=== PATIENT | male | born 1965 | race Caucasian/White ===

== ENCOUNTER 2016-11-09 16:25 | Emergency (ER) | payer SELFPAY ==
[~2016-11-09] VITALS: Ht 177.8 cm; Wt 100.0 kg
[2016-11-09 16:55] VITALS: BP 138/70
== END 2016-11-09 16:55 | disposition home or self-care (01) | DRG 392 ==
LOC: ED 16:25
DX: R10.13 Epigastric pain (principal); K29.70 Gastritis, unspecified, without bleeding

== ENCOUNTER 2017-08-07 22:20 | Emergency (ER) | payer SELFPAY ==
[~2017-08-07] VITALS: Ht 177.8 cm; Wt 105.0 kg
[2017-08-07] MEDS ORDERED: PROTONIX40 M2 PO (22:40)
[2017-08-08 00:19] VITALS: BP 138/73
== END 2017-08-08 00:34 | DRG 159 ==
LOC: ED 22:20
PROC: 0CQ0XZZ Repair Upper Lip, External Approach (ICD-10-PCS; principal; 2017-08-07)
DX: S01.511A Laceration without foreign body of lip, initial encounter (principal); S00.83XA Contusion of other part of head, initial encounter; F17.210 Nicotine dependence, cigarettes, uncomplicated; Y04.0XXA Assault by unarmed brawl or fight, initial encounter

== ENCOUNTER 2018-03-15 11:59 | Emergency (ER) | payer OTHER ==
[~2018-03-15] VITALS: Ht 177.8 cm; Wt 98.8 kg
[~2018-03-15 11:59] MED LIST: PROTONIX40 M2 PO
[2018-03-15] MEDS ORDERED: AZITHROMYCIN500 MG PO (12:48)
[2018-03-15] MEDS ORDERED: TESSALON PERLE100 MG PO (12:51)
[2018-03-15 13:11] VITALS: BP 166/106
== END 2018-03-15 13:21 | disposition home or self-care (01) | DRG 203 ==
LOC: ED 11:59
DX: J40 Bronchitis, not specified as acute or chronic (principal); I10 Essential (primary) hypertension; F17.200 Nicotine dependence, unspecified, uncomplicated; K21.9 Gastro-esophageal reflux disease without esophagitis

== ENCOUNTER 2018-07-26 03:40 | Emergency (ER) | payer SELFPAY ==
[~2018-07-26] VITALS: Ht 177.8 cm; Wt 85.0 kg
[~2018-07-26 03:40] MED LIST changes: +AZITHROMYCIN500 MG PO; +TESSALON PERLE100 MG PO
[2018-07-26 04:21] LABS: IMMATURE GRANULOCYTES 0.3 % (0.0-5.0); MEAN CELL VOLUME 97.5 fL CALC (80.0-100.0); MEAN CORPUSCULAR HGB 34.9 pG CALC (26.0-32.0); MEAN CORPUSCULAR HGB CONC 35.8 g/L CALC (32.0-36.0); NEUT# 3.75 thou/uL (1.82-7.42); RED BLOOD COUNT 5.99 mill/uL (4.70-6.10); RED CELL DISTRI WIDTH 12.4 % (11.5-15.5)
[2018-07-26 04:23] LABS: HEMATOCRIT 58.4 % (39.0-50.0); HEMOGLOBIN 20.9 g/dl (14.0-18.0)
[2018-07-26 04:33] LABS: ALBUMIN 4.3 g/dL (3.2-5.0); ALKALINE PHOSPHATASE 112 u/l (38-126); ANION GAP 19 (6-22 (CALC)); BILIRUBIN, TOTAL 1.1 mg/dL (0.0-1.4); BUN 5 mg/dL (9-20); BUN/CREATININE RATIO 8 (12-20 (CALC)); CARBON DIOXIDE 24 mmol/l (22-30); CHLORIDE 101 mmol/l (95-108); CREATININE 0.7 mg/dL (0.7-1.3); GFR > 60 ML/MIN (>=60 (CALC)); GFR FOR AFR.AMER. > 60 ML/MIN (>=60 (CALC)); POTASSIUM 3.7 mmol/l (3.5-5.1); SODIUM 141 mmol/l (137-146); TOTAL PROTEIN 7.5 g/dL (6.3-8.2)
[2018-07-26 04:41] LABS: SGOT/AST 75 u/l (17-59)
[2018-07-26 04:45] LABS: MYOGLOBIN 33 ng/mL (0 - 121)
[2018-07-26] MEDS ORDERED: PROVENTIL HFA IN (05:57)
[2018-07-26] MEDS ORDERED: CODEINE/GUAIFEN1 SOL PO (05:57)
[2018-07-26 06:06] VITALS: BP 151/93
== END 2018-07-26 06:19 | disposition home or self-care (01) | DRG 192 ==
LOC: ED 03:40
PROVIDERS: Emergency Medicine
DX: J44.9 Chronic obstructive pulmonary disease, unspecified (principal); I10 Essential (primary) hypertension; F17.210 Nicotine dependence, cigarettes, uncomplicated

== ENCOUNTER 2018-11-04 17:43 | Emergency (ER) | payer SELFPAY ==
[~2018-11-04] VITALS: Ht 177.8 cm; Wt 90.0 kg
[~2018-11-04 17:43] MED LIST changes: +CODEINE/GUAIFEN1 SOL PO; +PROVENTIL HFA IN
[2018-11-04 18:09] LABS: HEMATOCRIT 57.9 % (39.0-50.0); HEMOGLOBIN 20.1 g/dl (14.0-18.0); IMMATURE GRANULOCYTES 0.4 % (0.0-5.0); MEAN CELL VOLUME 99.5 fL CALC (80.0-100.0); MEAN CORPUSCULAR HGB 34.5 pG CALC (26.0-32.0); MEAN CORPUSCULAR HGB CONC 34.7 g/L CALC (32.0-36.0); NEUT# 5.32 thou/uL (1.82-7.42); RED BLOOD COUNT 5.82 mill/uL (4.70-6.10); RED CELL DISTRI WIDTH 12.2 % (11.5-15.5)
[2018-11-04 18:27] LABS: ANION GAP 25 (6-22 (CALC)); BUN 8 mg/dL (9-20); BUN/CREATININE RATIO 11 (12-20 (CALC)); CARBON DIOXIDE 20 mmol/l (22-30); CHLORIDE 101 mmol/l (95-108); CREATININE 0.8 mg/dL (0.7-1.3); GFR > 60 ML/MIN (>=60 (CALC)); GFR FOR AFR.AMER. > 60 ML/MIN (>=60 (CALC)); POTASSIUM 3.3 mmol/l (3.5-5.1); SODIUM 142 mmol/l (137-146)
[2018-11-04 18:35] LABS: ETHYL ALCOHOL 366 mg/dl (0-30)
[2018-11-04 19:53] LABS: URINE BILIRUBIN - DIPSTICK NEGATIVE (NEGATIVE); URINE BLOOD DIPSTICK NEGATIVE (NEGATIVE); URINE COLOR YELLOW; URINE GLUCOSE - DIPSTICK 250 mg/dL (NEGATIVE); URINE KETONE TRACE mg/dL (NEGATIVE); URINE LEUK ESTERASE NEGATIVE (NEGATIVE); URINE NITRITE - DIPSTICK NEGATIVE (Negative); URINE PROTEIN - DIPSTICK NEGATIVE (NEG-TRACE); URINE SPECIFIC GRAVITY <=1.005; URINE UROBILINOGEN - DIPSTICK 0.2 E.U./dL (0.2)
[2018-11-04 19:55] LABS: BARBITURATES NEGATIVE (NEGATIVE); COCAINE NEGATIVE (NEGATIVE); METHADONE NEGATIVE (NEGATIVE); OXCYCODONE NEGATIVE (NEGATIVE); TETRAHYDROCANNABIONOL NEGATIVE (NEGATIVE); TRICYLIC ANTIDEPRESSANTS NEGATIVE (NEGATIVE)
[2018-11-05] MEDS ORDERED: LIBRIUM25 MG PO (07:01)
[2018-11-05 08:11] VITALS: BP 108/69
== END 2018-11-05 08:12 | disposition home or self-care (01) | DRG 897 ==
LOC: ED 17:43
PROVIDERS: Family Medicine
DX: F10.129 Alcohol abuse with intoxication, unspecified (principal); Y90.8 Blood alcohol level of 240 mg/100 ml or more; R41.82 Altered mental status, unspecified; F17.200 Nicotine dependence, unspecified, uncomplicated; Y92.009 Unspecified place in unspecified non-institutional (private) residence as the place of occurrence of the external cause
CPT/HCPCS: J2060

== ENCOUNTER 2018-12-09 04:42 | Emergency (ER) | payer SELFPAY ==
[~2018-12-09] VITALS: Ht 177.8 cm; Wt 82.0 kg
[~2018-12-09 04:42] MED LIST changes: +LIBRIUM25 MG PO
[2018-12-09 05:11] LABS: GFR > 60 ML/MIN (>=60 (CALC)); GFR FOR AFR.AMER. > 60 ML/MIN (>=60 (CALC)); IMMATURE GRANULOCYTES 0.2 % (0.0-5.0); MEAN CELL VOLUME 96.5 fL CALC (80.0-100.0); MEAN CORPUSCULAR HGB 34.3 pG CALC (26.0-32.0); MEAN CORPUSCULAR HGB CONC 35.6 g/L CALC (32.0-36.0); NEUT# 2.47 thou/uL (1.82-7.42); RED BLOOD COUNT 5.1 mill/uL (4.70-6.10); RED CELL DISTRI WIDTH 11.7 % (11.5-15.5)
[2018-12-09 05:13] LABS: HEMATOCRIT 49.2 % (39.0-50.0); HEMOGLOBIN 17.5 g/dl (14.0-18.0)
[2018-12-09 05:32] LABS: ACT PARTIAL THROMBO TIME 26.1 SECONDS (20.0-32.5); PROTHROMBIN TIME 10.6 SECONDS (9.0-12.5)
[2018-12-09 05:33] LABS: ALBUMIN 4.5 g/dL (3.2-5.0); ALKALINE PHOSPHATASE 104 u/l (38-126); BILIRUBIN, TOTAL 1.2 mg/dL (0.0-1.4); BUN 9 mg/dL (9-20); BUN/CREATININE RATIO 12 (12-20 (CALC)); CHLORIDE 102 mmol/l (95-108); CREATININE 0.7 mg/dL (0.7-1.3); ETHYL ALCOHOL 144 mg/dl (0-30); GFR > 60 ML/MIN (>=60 (CALC)); GFR FOR AFR.AMER. > 60 ML/MIN (>=60 (CALC)); LIPASE 66 u/l (23-300); MAGNESIUM 1.8 mg/dL (1.6-2.3); POTASSIUM 3.3 mmol/l (3.5-5.1); SGOT/AST 109 u/l (17-59); SODIUM 141 mmol/l (137-146); TOTAL PROTEIN 7.4 g/dL (6.3-8.2)
[2018-12-09 05:34] LABS: ANION GAP 13 (6-22 (CALC)); CARBON DIOXIDE 29 mmol/l (22-30)
[2018-12-09 06:28] VITALS: BP 134/82
[2018-12-09 06:30] LABS: URINE BILIRUBIN - DIPSTICK NEGATIVE (NEGATIVE); URINE BLOOD DIPSTICK NEGATIVE (NEGATIVE); URINE COLOR YELLOW; URINE GLUCOSE - DIPSTICK NEGATIVE (NEGATIVE); URINE KETONE NEGATIVE (NEGATIVE); URINE LEUK ESTERASE NEGATIVE (NEGATIVE); URINE NITRITE - DIPSTICK NEGATIVE (Negative); URINE PH 6.5 (4.5-8.0); URINE PROTEIN - DIPSTICK NEGATIVE (NEG-TRACE); URINE SPECIFIC GRAVITY <=1.005; URINE UROBILINOGEN - DIPSTICK 0.2 E.U./dL (0.2)
[2018-12-09 06:33] LABS: COCAINE NEGATIVE (NEGATIVE); TETRAHYDROCANNABIONOL NEGATIVE (NEGATIVE)
[2018-12-09 06:34] LABS: METHADONE NEGATIVE (NEGATIVE)
[2018-12-09 06:36] LABS: BARBITURATES NEGATIVE (NEGATIVE); OXCYCODONE NEGATIVE (NEGATIVE); TRICYLIC ANTIDEPRESSANTS NEGATIVE (NEGATIVE)
== END 2018-12-09 06:28 | disposition short-term general hospital (02) | DRG 66 ==
LOC: ED 04:42
DX: I63.9 Cerebral infarction, unspecified (principal); R20.0 Anesthesia of skin; R53.1 Weakness; R29.703 NIHSS score 3; I10 Essential (primary) hypertension; F17.200 Nicotine dependence, unspecified, uncomplicated; R07.9 Chest pain, unspecified; T46.5X6A Underdosing of other antihypertensive drugs, initial encounter; Z91.128 Patient's intentional underdosing of medication regimen for other reason; Z72.89 Other problems related to lifestyle

== ENCOUNTER 2019-02-26 07:40 | Emergency (ER) | payer BC ==
[~2019-02-26] VITALS: Ht 177.8 cm; Wt 77.0 kg
[2019-02-26] MEDS ORDERED: MEDDOSEPAK PO (08:14)
[2019-02-26] MEDS ORDERED: ZITHROMAX250 MG PO (08:14)
[2019-02-26] MEDS ORDERED: PROVENTIL108 MCG/AC IN (08:14)
[2019-02-26] MEDS ORDERED: CODEINE/GUAIFEN1 SOL PO (08:14)
[2019-02-26 08:25] VITALS: BP 140/90
== END 2019-02-26 08:31 | disposition home or self-care (01) | DRG 192 ==
LOC: ED 07:40
DX: J44.1 Chronic obstructive pulmonary disease with (acute) exacerbation (principal); F17.210 Nicotine dependence, cigarettes, uncomplicated; R05 Cough; Z91.19 Patient's noncompliance with other medical treatment and regimen

== ENCOUNTER 2019-04-25 | Emergency (ER) | payer BC ==
[~2019-04-25] MED LIST changes: +MEDDOSEPAK PO; +PROVENTIL108 MCG/AC IN; +ZITHROMAX250 MG PO
[2019-04-25 17:27] LABS: HEMATOCRIT 48.2 % (39.0-50.0); HEMOGLOBIN 16.6 g/dl (14.0-18.0); IMMATURE GRANULOCYTES 0.3 % (0.0-5.0); MEAN CELL VOLUME 100.8 fL CALC (80.0-100.0); MEAN CORPUSCULAR HGB 34.7 pG CALC (26.0-32.0); MEAN CORPUSCULAR HGB CONC 34.4 g/L CALC (32.0-36.0); NEUT# 6.12 thou/uL (1.82-7.42); RED BLOOD COUNT 4.78 mill/uL (4.70-6.10); RED CELL DISTRI WIDTH 12.3 % (11.5-15.5)
[2019-04-25 17:55] LABS: ALBUMIN 4.5 g/dL (3.2-5.0); ALKALINE PHOSPHATASE 123 u/l (38-126); BUN 12 mg/dL (9-20); CHLORIDE 103 mmol/l (95-108); LIPASE 41 u/l (23-300); SGOT/AST 185 u/l (17-59); SODIUM 141 mmol/l (137-146); TOTAL PROTEIN 8.1 g/dL (6.3-8.2)
[2019-04-25 17:56] LABS: ANION GAP 28 (6-22 (CALC)); BILIRUBIN, TOTAL 0.7 mg/dL (0.0-1.4); CARBON DIOXIDE 14 mmol/l (22-30); POTASSIUM 4.1 mmol/l (3.5-5.1)
[2019-04-25 18:34] LABS: BUN/CREATININE RATIO 20 (12-20 (CALC)); CREATININE 0.6 mg/dL (0.7-1.3); GFR > 60 ML/MIN (>=60 (CALC)); GFR FOR AFR.AMER. > 60 ML/MIN (>=60 (CALC))
[2019-04-25 19:01] LABS: URINE BILIRUBIN - DIPSTICK NEGATIVE (NEGATIVE); URINE BLOOD DIPSTICK NEGATIVE (NEGATIVE); URINE COLOR YELLOW; URINE GLUCOSE - DIPSTICK NEGATIVE (NEGATIVE); URINE KETONE 15 mg/dL (NEGATIVE); URINE LEUK ESTERASE NEGATIVE (NEGATIVE); URINE NITRITE - DIPSTICK NEGATIVE (Negative); URINE PROTEIN - DIPSTICK NEGATIVE (NEG-TRACE); URINE UROBILINOGEN - DIPSTICK 0.2 E.U./dL (0.2)
[2019-04-25 19:28] LABS: BARBITURATES NEGATIVE (NEGATIVE); COCAINE NEGATIVE (NEGATIVE); METHADONE NEGATIVE (NEGATIVE); OXCYCODONE NEGATIVE (NEGATIVE); TETRAHYDROCANNABIONOL NEGATIVE (NEGATIVE); TRICYLIC ANTIDEPRESSANTS NEGATIVE (NEGATIVE)
[2019-04-25 20:19] LABS: ETHYL ALCOHOL 364 mg/dl (0-30)
[2019-04-26 02:21] LABS: ALKALINE PHOSPHATASE 91 u/l (38-126); BUN 9 mg/dL (9-20); BUN/CREATININE RATIO 16 (12-20 (CALC)); CHLORIDE 108 mmol/l (95-108); CREATININE 0.6 mg/dL (0.7-1.3); ETHYL ALCOHOL 131 mg/dl (0-30); GFR > 60 ML/MIN (>=60 (CALC)); GFR FOR AFR.AMER. > 60 ML/MIN (>=60 (CALC)); POTASSIUM 4.2 mmol/l (3.5-5.1); SGOT/AST 134 u/l (17-59); SODIUM 142 mmol/l (137-146)
[2019-04-26 02:24] LABS: ALBUMIN 3.4 g/dL (3.2-5.0); ANION GAP 15 (6-22 (CALC)); BILIRUBIN, TOTAL 0.4 mg/dL (0.0-1.4); CARBON DIOXIDE 23 mmol/l (22-30); TOTAL PROTEIN 6.1 g/dL (6.3-8.2)
[2019-04-26] MEDS ORDERED: PREVACID30 M3 PO (06:48)
== END 2019-04-26 07:05 | disposition home or self-care (01) | DRG 897 ==
PROVIDERS: Emergency Medicine; Family Medicine
DX: F10.129 Alcohol abuse with intoxication, unspecified (principal); S00.11XA Contusion of right eyelid and periocular area, initial encounter; I10 Essential (primary) hypertension; F17.210 Nicotine dependence, cigarettes, uncomplicated; W19.XXXA Unspecified fall, initial encounter
CPT/HCPCS: J2060

== ENCOUNTER 2019-06-26 14:32 | Observation (INO) | payer SELFPAY ==
[~2019-06-26] VITALS: Ht 175.3 cm; Wt 70.9 kg
[~2019-06-26 14:32] MED LIST changes: +PREVACID30 M3 PO
[2019-06-26 16:12] LABS: IMMATURE GRANULOCYTES 0.2 % (0.0-5.0); MEAN CELL VOLUME 96.9 fL CALC (80.0-100.0); MEAN CORPUSCULAR HGB 34.4 pG CALC (26.0-32.0); MEAN CORPUSCULAR HGB CONC 35.5 g/dL CAL (32.0-36.0); NEUT# 3.41 thou/uL (1.82-7.42); RED BLOOD COUNT 4.16 mill/uL (4.70-6.10); RED CELL DISTRI WIDTH 11.7 % (11.5-15.5)
[2019-06-26 16:20] LABS: HEMATOCRIT 40.3 % (39.0-50.0); HEMOGLOBIN 14.3 g/dl (14.0-18.0)
[2019-06-26 16:29] LABS: ALBUMIN 3.6 g/dL (3.2-5.0); BUN 7 mg/dL (9-20); BUN/CREATININE RATIO 21 (12-20 (CALC)); CARBON DIOXIDE 27 mmol/l (22-30); CREATININE 0.3 mg/dL (0.7-1.3); ETHYL ALCOHOL 0 mg/dl (0-30); GFR > 60 ML/MIN (>=60 (CALC)); GFR FOR AFR.AMER. > 60 ML/MIN (>=60 (CALC)); SGOT/AST 197 u/l (17-59); TOTAL PROTEIN 6.4 g/dL (6.3-8.2)
[2019-06-26 16:30] LABS: URINE BILIRUBIN - DIPSTICK NEGATIVE (NEGATIVE); URINE BLOOD DIPSTICK NEGATIVE (NEGATIVE); URINE COLOR YELLOW; URINE GLUCOSE - DIPSTICK NEGATIVE (NEGATIVE); URINE KETONE NEGATIVE (NEGATIVE); URINE LEUK ESTERASE NEGATIVE (NEGATIVE); URINE NITRITE - DIPSTICK NEGATIVE (Negative); URINE PH 6.5 (4.5-8.0); URINE PROTEIN - DIPSTICK NEGATIVE (NEG-TRACE)
[2019-06-26 16:32] LABS: ALKALINE PHOSPHATASE 137 u/l (38-126); ANION GAP 14 (6-22 (CALC)); BILIRUBIN, TOTAL 1.1 mg/dL (0.0-1.4); CHLORIDE 93 mmol/l (95-108); POTASSIUM 3.3 mmol/l (3.5-5.1); SODIUM 131 mmol/l (137-146)
[2019-06-26 16:49] LABS: COCAINE NEGATIVE (NEGATIVE); METHADONE NEGATIVE (NEGATIVE); TETRAHYDROCANNABIONOL NEGATIVE (NEGATIVE)
[2019-06-26 16:50] LABS: BARBITURATES NEGATIVE (NEGATIVE); OXCYCODONE NEGATIVE (NEGATIVE); TRICYLIC ANTIDEPRESSANTS NEGATIVE (NEGATIVE)
[2019-06-26 20:34] VITALS: BP 118/73
[2019-06-26 23:06] VITALS: BP 129/82
[2019-06-27 04:01] VITALS: BP 141/86
[2019-06-27 05:06] LABS: HEMATOCRIT 40.8 % (39.0-50.0); HEMOGLOBIN 14.5 g/dl (14.0-18.0); IMMATURE GRANULOCYTES 0.2 % (0.0-5.0); MEAN CELL VOLUME 97.4 fL CALC (80.0-100.0); MEAN CORPUSCULAR HGB 34.6 pG CALC (26.0-32.0); MEAN CORPUSCULAR HGB CONC 35.5 g/dL CAL (32.0-36.0); NEUT# 3.27 thou/uL (1.82-7.42); RED BLOOD COUNT 4.19 mill/uL (4.70-6.10); RED CELL DISTRI WIDTH 11.6 % (11.5-15.5)
[2019-06-27 05:15] LABS: ALBUMIN 3.6 g/dL (3.2-5.0); ALKALINE PHOSPHATASE 151 u/l (38-126); ANION GAP 11 (6-22 (CALC)); BUN 6 mg/dL (9-20); BUN/CREATININE RATIO 14 (12-20 (CALC)); CARBON DIOXIDE 27 mmol/l (22-30); CHLORIDE 99 mmol/l (95-108); CREATININE 0.4 mg/dL (0.7-1.3); GFR > 60 ML/MIN (>=60 (CALC)); GFR FOR AFR.AMER. > 60 ML/MIN (>=60 (CALC)); POTASSIUM 3.6 mmol/l (3.5-5.1); SODIUM 133 mmol/l (137-146); TOTAL PROTEIN 6.4 g/dL (6.3-8.2)
[2019-06-27 05:19] LABS: BILIRUBIN, TOTAL 1.7 mg/dL (0.0-1.4); SGOT/AST 374 u/l (17-59)
[2019-06-27 08:17] VITALS: BP 128/83
[2019-06-27] MEDS ORDERED: LIBRIUM25 M1 PO (11:31)
[2019-06-27 11:47] VITALS: BP 129/77
== END 2019-06-27 12:20 | disposition home or self-care (01) | DRG 897 ==
LOC: ED 14:32 → ED-I 17:00 → ED 17:16 → ED-I 17:17 → MS2 17:17
PROVIDERS: ADMIT Internal Medicine; ATTEND Internal Medicine
DX: F10.239 Alcohol dependence with withdrawal, unspecified (principal); E87.6 Hypokalemia; I10 Essential (primary) hypertension; K21.9 Gastro-esophageal reflux disease without esophagitis; F17.210 Nicotine dependence, cigarettes, uncomplicated
CPT/HCPCS: G0378; J2060

== ENCOUNTER 2019-08-06 21:56 | Observation (INO) | payer OTHER ==
[~2019-08-06] VITALS: Ht 175.3 cm; Wt 70.9 kg
[~2019-08-06 21:56] MED LIST changes: +LIBRIUM25 M1 PO
--- NOTE | 2019-08-06 21:56 | NUR ---
PT TO ROOM 10 VIA EMS.
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
[2019-08-06 22:34] LABS: IMMATURE GRANULOCYTES 0.5 % (0.0-5.0); MEAN CELL VOLUME 98.6 fL CALC (80.0-100.0); MEAN CORPUSCULAR HGB 34.4 pG CALC (26.0-32.0); MEAN CORPUSCULAR HGB CONC 34.9 g/dL CAL (32.0-36.0); NEUT# 6.37 thou/uL (1.82-7.42); RED BLOOD COUNT 5.08 mill/uL (4.70-6.10); RED CELL DISTRI WIDTH 13.2 % (11.5-15.5)
--- NOTE | 2019-08-06 22:36 | NUR ---
IVF, IV ATIVAN AND IV PROTONIX GIVEN PER MD ORDER.
[2019-08-06 22:37] LABS: HEMATOCRIT 50.1 % (39.0-50.0); HEMOGLOBIN 17.5 g/dl (14.0-18.0)
[2019-08-06 22:53] LABS: ACT PARTIAL THROMBO TIME 24.3 SECONDS (20.0-32.5); PROTHROMBIN TIME 10.8 SECONDS (9.0-12.5)
[2019-08-06 22:56] LABS: ALBUMIN 3.9 g/dL (3.2-5.0); ALKALINE PHOSPHATASE 176 u/l (38-126); AMYLASE 74 u/l (30-110); BUN 12 mg/dL (9-20); BUN/CREATININE RATIO 17 (12-20 (CALC)); CHLORIDE 107 mmol/l (95-108); CREATININE 0.7 mg/dL (0.7-1.3); ETHYL ALCOHOL 234 mg/dl (0-30); GFR > 60 ML/MIN (>=60 (CALC)); GFR FOR AFR.AMER. > 60 ML/MIN (>=60 (CALC)); LIPASE 71 u/l (23-300); POTASSIUM 3.9 mmol/l (3.5-5.1); SODIUM 139 mmol/l (137-146); TOTAL PROTEIN 7.1 g/dL (6.3-8.2)
[2019-08-06 23:01] LABS: URINE BILIRUBIN - DIPSTICK NEGATIVE (NEGATIVE); URINE BLOOD DIPSTICK NEGATIVE (NEGATIVE); URINE COLOR YELLOW; URINE GLUCOSE - DIPSTICK NEGATIVE (NEGATIVE); URINE KETONE 15 mg/dL (NEGATIVE); URINE LEUK ESTERASE NEGATIVE (NEGATIVE); URINE NITRITE - DIPSTICK NEGATIVE (Negative); URINE PROTEIN - DIPSTICK TRACE mg/dL (NEG-TRACE); URINE SPECIFIC GRAVITY 1.025
[2019-08-06 23:01] LABS: ANION GAP 16 (6-22 (CALC)); BILIRUBIN, TOTAL 0.7 mg/dL (0.0-1.4); CARBON DIOXIDE 20 mmol/l (22-30); SGOT/AST 90 u/l (17-59)
--- NOTE | 2019-08-06 23:02 | NUR ---
O2 SAT 86 % 2 LIT O2 NC APPLIED.
[2019-08-06 23:07] LABS: BARBITURATES NEGATIVE (NEGATIVE); COCAINE NEGATIVE (NEGATIVE); METHADONE NEGATIVE (NEGATIVE); OXCYCODONE NEGATIVE (NEGATIVE); TETRAHYDROCANNABIONOL NEGATIVE (NEGATIVE); TRICYLIC ANTIDEPRESSANTS NEGATIVE (NEGATIVE)
--- NOTE | 2019-08-06 23:24 | NUR ---
O2 SAT NOW 95%. ON 2 LIT/NC.
[2019-08-06 23:37] LABS: D-DIMER 2.1 mg/L (0.19-0.60)
--- NOTE | 2019-08-07 02:46 | NUR ---
MD IN ROOM TO DISCUSS CLINICAL FINDINGFS WITH PT. VERBALIZED UNDERSTANDING.
--- NOTE | 2019-08-07 03:19 | NUR ---
Admission Note Report Given to: IGNACIO SHETTY Transported by: Wheelchair X Stretcher Transported with: X Nurse Transporter X Patent IV X O2 Bench Patternmaker Metal Location: ICU X MS2
--- NOTE | 2019-08-07 04:00 | NUR ---
PT. TAKEN TO [place] VIA STRETCHER, NO C/O. ACOUSTICS TEACHER DEPT. ARE BEDSIDE.
[2019-08-07 04:14] VITALS: BP 144/88
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
[2019-08-07 07:30] VITALS: BP 144/87
--- NOTE | 2019-08-07 07:30 | NUR ---
ASSESSNENT IS COMPLTED: IV SITE IS FREE FROM REDNESS OR EDEMA. HR IS REG,PULSES ARE STRONG X4, ABD IS SOFT WITH ACTIVE BS. BREATH SOUNDS ARE CLEAR BILATERALLY. TELE MONITOR IN PLACE. GUARD IS PRESENT AT BEDSIDE. CONTINUE TO OBSERVE AND MONITOR.
[2019-08-07 07:36] LABS: CHOLESTEROL HDL RATIO 2.7 (<4.4 (CALC))
[2019-08-07 11:30] VITALS: BP 144/84
--- NOTE | 2019-08-07 12:15 | NUR ---
PT IS RELAXING IN BED WITH GUARD AT BEDSIDE. IV SITE IS FREE FROM REDNESS OR EDEMA.CONTINUE TO OSBERVE AND MONITOR.
--- NOTE | 2019-08-07 15:00 | NUR ---
IV SITE DISCONTINUED CATHETER INTACT. NO REDNESS OR EDEMA. DISCHARGE INSTRUCTIONS GIVEN AND VERBALIZED UNDERSTANDING. GUARD WAITING FOR A RIDE. Discharge instructions given. Patient verbalizes understanding of same. Discharged in stable condition via Wheelchair to *Other with *Other. All belongings sent with pt.MCC AND GUARD
== END 2019-08-07 14:35 | DRG 313 ==
LOC: ED 21:56 → ED-I 22:35 → ED 08-07 03:03 → MS2 08-07 03:04
PROVIDERS: ADMIT Internal Medicine; ATTEND Internal Medicine
DX: R07.89 Other chest pain (principal); F10.129 Alcohol abuse with intoxication, unspecified; I10 Essential (primary) hypertension; J44.9 Chronic obstructive pulmonary disease, unspecified; T50.996A Underdosing of other drugs, medicaments and biological substances, initial encounter; F17.200 Nicotine dependence, unspecified, uncomplicated; Y90.7 Blood alcohol level of 200-239 mg/100 ml; Z91.128 Patient's intentional underdosing of medication regimen for other reason; Z87.11 Personal history of peptic ulcer disease; Z20.828 Contact with and (suspected) exposure to other viral communicable diseases
CPT/HCPCS: G0378; J2060; Q9967; S0164

== ENCOUNTER 2020-02-11 17:39 | Emergency (ER) | payer OTHER ==
[~2020-02-11] VITALS: Ht 175.3 cm; Wt 90.0 kg
[2020-02-11] MEDS ORDERED: PENICILLN VK500 MG PO (17:58)
[2020-02-11] MEDS ORDERED: CLEOCIN300 MG PO (18:03)
[2020-02-11 18:05] VITALS: BP 183/83
== END 2020-02-11 18:42 | DRG 159 ==
LOC: ED 17:39
DX: K02.9 Dental caries, unspecified (principal); I10 Essential (primary) hypertension; K21.9 Gastro-esophageal reflux disease without esophagitis; F17.200 Nicotine dependence, unspecified, uncomplicated; Z20.828 Contact with and (suspected) exposure to other viral communicable diseases

== ENCOUNTER 2021-10-28 18:08 | Emergency (ER) | payer SELFPAY ==
[~2021-10-28] VITALS: Ht 175.3 cm; Wt 113.0 kg
[~2021-10-28 18:08] MED LIST changes: +CLEOCIN300 MG PO; +PENICILLN VK500 MG PO
[2021-10-28 18:29] VITALS: BP 119/95
[2021-10-28 18:30] VITALS: BP 132/87
[2021-10-28 18:46] VITALS: BP 116/77
[2021-10-28 19:02] VITALS: BP 135/110
[2021-10-28 19:08] LABS: HEMATOCRIT 55.3 % (39.0-50.0); HEMOGLOBIN 19.2 g/dl (14.0-18.0); IMMATURE GRANULOCYTES 0.4 % (0.0-5.0); MEAN CELL VOLUME 98.9 fL CALC (80.0-100.0); MEAN CORPUSCULAR HGB 34.3 pG CALC (26.0-32.0); MEAN CORPUSCULAR HGB CONC 34.7 g/dL CAL (32.0-36.0); NEUT# 5.23 thou/uL (1.82-7.42); RED BLOOD COUNT 5.59 mill/uL (4.70-6.10); RED CELL DISTRI WIDTH 12.5 % (11.5-15.5)
[2021-10-28 19:15] VITALS: BP 103/85
[2021-10-28 19:18] LABS: ALBUMIN 4.3 g/dL (3.2-5.0); ALKALINE PHOSPHATASE 132 u/l (38-126); ANION GAP 21 (6-22 (CALC)); BILIRUBIN, TOTAL 0.5 mg/dL (0.0-1.4); BUN 9 mg/dL (9-20); BUN/CREATININE RATIO 13 (12-20 (CALC)); CARBON DIOXIDE 19 mmol/l (22-30); CHLORIDE 107 mmol/l (95-108); CREATININE 0.7 mg/dL (0.7-1.3); ETHYL ALCOHOL 233 mg/dl (0-30); GFR FOR AFR.AMER. > 60 ML/MIN (>=60 (CALC)); GFR OTHER RACES > 60 ML/MIN (>=60 (CALC)); SGOT/AST 121 u/l (17-59); SODIUM 142 mmol/l (137-146); TOTAL PROTEIN 7.7 g/dL (6.3-8.2)
[2021-10-29] MEDS ORDERED: LIBRIUM25 MG PO (02:31)
[2021-10-29 03:59] VITALS: BP 103/85
== END 2021-10-29 06:51 | disposition home or self-care (01) | DRG 897 ==
LOC: ED 18:08
PROVIDERS: Emergency Medicine
DX: F10.129 Alcohol abuse with intoxication, unspecified (principal); I10 Essential (primary) hypertension; K21.9 Gastro-esophageal reflux disease without esophagitis; F17.200 Nicotine dependence, unspecified, uncomplicated